=== PATIENT | male | born 1965 | race Caucasian/White ===

== ENCOUNTER 2017-02-03 00:12 | Emergency (ER) | payer OTHER ==
[~2017-02-03] VITALS: Ht 177.8 cm; Wt 112.0 kg
[~2017-02-03 00:12] MED LIST: DIAZEPAM10 MG PO; HYDRODIURIL 2525 MG PO; LOPRESSOR100 MG PO; MICARDIS40 MG PO; MOBIC15 M1 PO; MORPHINE SULFAT30 M2 PO; MULTIVITAMIN1 TAB PO; OXYCODONE HYDRO30 MG PO; PERCOCET 5-3251 EACH PO
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
--- NOTE | 2017-02-03 06:14 | RADIOLOGY REPORT ---
EXAMINATION: XR KNEE, LEFT XR KNEE, RIGHT CLINICAL INFORMATION: Chronic pain COMPARISON: 04/16/2011 TECHNIQUE: 4 views of each knee FINDINGS: Left knee: No fracture or subluxation. Mild medial compartment joint space narrowing. Prominent tricompartmental marginal osteophytes. No significant joint effusion. Right knee: No fracture or subluxation. Mild medial compartment joint space narrowing. Prominent tricompartmental marginal osteophytes. No joint effusion. IMPRESSION: No acute osseous abnormality. Moderate tricompartmental degenerative changes of both knees.
[2017-02-03] MEDS ORDERED: PERCOCET 5-3251 EACH PO (06:29)
[2017-02-03] MEDS ORDERED: IBUPROFEN800 M1 PO (06:31)
[2017-02-03 06:38] VITALS: BP 156/89
[2017-03-01] MEDS ORDERED: NAPROXEN SODIU220 MG PO (15:10)
[2017-03-01] MEDS ORDERED: LISINOPRIL20 M1 PO (15:10)
[2017-03-01] MEDS ORDERED: LEVOTHYROXINE25 MCG PO (15:10)
[2017-03-01] MEDS ORDERED: ATORVASTATIN CA20 M1 PO (15:11)
[2017-03-01] MEDS ORDERED: TRAZODONE HCL50 M1 PO (15:11)
== END 2017-02-03 06:39 ==
LOC: ERH 00:12
DX: G89.29 Other chronic pain (principal); M17.0 Bilateral primary osteoarthritis of knee
CPT/HCPCS: 73562-LT; 73562-RT

== ENCOUNTER 2017-02-10 19:46 | Emergency (ER) | payer OTHER ==
[~2017-02-10] VITALS: Ht 177.8 cm; Wt 112.0 kg
[~2017-02-10 19:46] MED LIST changes: +IBUPROFEN800 M1 PO
[2017-02-10] MEDS ORDERED: HYDROCHLOROTHIA25 M1 PO (20:19)
[2017-02-10] MEDS ORDERED: METOPROLOL TAR100 M1 PO (20:19)
--- NOTE | 2017-02-10 20:23 | ED HEADACHE COMPLAINT ---
History of Present Illness General Chief Complaint: General Adult Stated Complaint: MIGRAINE, PANIC ATTACK Source: patient, old records Exam Limitations: no limitations Vital Signs & Intake/Output Vital Signs & Intake/Output Vital Signs Date Time Temp Pulse Resp B/P B/P Pulse O2 O2 Flow FiO2 Mean Ox Delivery Rate 02/11 2056 180/120 02/10 2041 77 22 197/131 02/10 2009 99.3 77 22 197/131 94 Room Air Allergies Coded Allergies: NO KNOWN ALLERGIES (NKA 02/10/17) Reconcile Medications Hydrochlorothiazide 25 MG TABLET 1 TAB PO DAILY BP (Reported) Ibuprofen 800 MG TABLET 1 TAB PO TID PRN pain Metoprolol Tartrate 100 MG TABLET 1 TAB PO BID HEART/BP (Reported) Oxycodone HCl/Acetaminophen (Percocet 5-325 MG Tablet) 5 MG-325 MG TABLET 1 TAB PO BID PAIN Triage Note: TRIAGE: PT TO ER C/C MIGRAINE HEADACHE, ONSET LAST NIGHT. CONSTANT SINCE ONSET. TAKING MOTRIN "THAT'S IT, THAT'S ALL I GOT. THEY CUT ME OFF CHAMP I CAME UP SHORT". MOTRIN ISN'T HELPING THE PAIN. PT HYPERTENSIVE. STATES TAKES METOPROLOL 100 MG BID, WAS DUE TO TAKE EVENING DOSE AT 8 PM. AUTO B/P 197/131, MANUAL 178/118 AT TRIAGE. BAKERY SUPERVISOR SAMMY AWARE OF SAME. Triage Nurses Notes Reviewed? yes Onset: Gradual Duration: week(s): (1), constant, waxing and waning Timing: recent history Quality/Severity: moderate, severe, achy Severity Numbers: 6 Head Injury Location: global No Modifying Factors: none Associated Symptoms: denies HPI: 52-year-old male with history of migraines chronic pain for which she was previously and pain management however was kicked out presents complaining of a one-week history of a progressively worsening waxing and waning in intensity migraine headache. States he's been taking ibuprofen and Tylenol without improvement. He was seen here last week for knee pain and was prescribed Percocet however states he ran out on arrival he presents hypertensive denies any vision changes nausea vomiting. No recent fall or head trauma no chest pain shortness of breath abdominal pain. He states that he did not take his metoprolol this evening no Lasix 100 mg twice a day. No modifying factors or associated symptoms otherwise he is not followed by a neurologist regarding his headaches. (DEQUAN VASQUEZ) Past History Travel History Traveled to [place] past 21 day No Medical History Any Pertinent Medical History? 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 No (DEQUAN VASQUEZ) Review of Systems Review of Systems Constitutional: Reports: see HPI. All Other Systems: Reviewed and Negative Comments Review of systems: See HPI, All other systems negative. Constitutional, no chills no fever, no malaise HEENT: No visual changes no sore throat no congestion Cardiovascular: No chest pain , no palpitation Skin: no rashes, no change in skin Respiratory: No dyspnea no cough no sputum GI: No nausea no vomiting, no diarrhea, no bloating/constipation : No dysuria Muscle skeletal: No joint pain, no joint swelling, no back pain, no neck pain, Neurologic: No numbness no confusion, headache Psych: No stress Heme/endocrine: No bruising Immunology: No lymphadenopathy (DEQUAN VASQUEZ) Physical Exam Physical Exam General Appearance: well developed/nourished, alert Cranial Nerves: normal hearing, normal speech, PERRL Comments: Well-developed well-nourished person in no acute distress HEENT: Normal EENT exam; PERRL, EOMI, no nystagmus. HEAD is atraumatic. moist mucous membranes. Neck: Supple, normal range of motion Back: Nontender, no CVA tenderness. Full range of motion Cardiovascular: Regular rate and rhythms no murmurs rubs Respiratory: Chest nontender.There were no bony deformities, no asymmetry. No respiratory distress. Patient speaking in full complete sentences. Breath sounds clear to auscultation bilaterally: NO W/R/R Abdomen: Soft, nontender nondistended, no appreciable organomegaly. Normal bowel sounds. No rebound/guarding, Extremity: No edema, full range of motion of extremities Neuro: Alert oriented x3, motor sensory normal, cranial nerves are intact within normal limits There were no obvious focal neurologic abnormalities. Skin: No appreciable rash on exposed skin, skin is warm and dry. Psych: Mood and affect is normal, memory and judgment is normal. Core Measures Severe Sepsis Present: No Septic Shock Present: No (DEQUAN VASQUEZ) Progress Differential Diagnosis: IC mass/tumor, intracranial Hem., meningitis, migraine GUZMAN, tension GUZMAN, HTN, HYPERTENSIVE URGENCY/EMERGENCY, OPIATE WITHDRAWAL Plan of Care: Current Medications Sig/Will Start time Last Medication Dose Stop Time Status Admin Metoprolol Tartrate 100 MG ONCE ONE 02/10 2045 UNVr (Lopressor) 02/10 2046 Oxycodone/ 1 TAB ONCE ONE 02/10 2045 UNVr Acetaminophen 02/10 2046 (Percocet) For patient's chronic pain and likely opioid withdrawal he is given 2 Percocet and monitored. Discussed with him that it is likely having increased blood pressure from pain and also withdrawal from opiates. I discussed with patient regarding continued narcotic use and abuse and he needs follow-up with pain management as well as pmd and neurolgist dr luciano. He is in the works to have a follow-up with pain management. He understands that the ER cannot continue to prescribe him narcotic pain medication. He'll be given 10 pills as are policy states for chronic pain he is stable for discharge home. (DEQUAN VASQUEZ) Departure Departure Time of Disposition: 2035 Disposition: HOME OR SELF CARE Condition: Stable Clinical Impression Primary Impression: Migraine Referrals: MUSTAPHA STEWARD,JORGE HOLLINS APRN (PCP/Family) TANVI STEWARD,ZOHREH Lo Additional Instructions: FOLLOW UP WITH NEUROLOGIST DR LUCIANO WELL PAIN MANAGEMENT DR TANVI SESAY DIRECTED- THIS IS A NARCOTIC AND HIGHLY ADDICTIVE. NO DRIVING OR DRINKING ALCOHOL WHILE TAKING. THIS ER CANNOT AND WILLNOT CONTINUE TO PRSECRIBE YOU THESE MEDICATIONS. CONTINUE TO TAKE YOUR BLOOD PRESSURE MEDICATION PRESCRIBED AND CHECK YOUR BLOOD PRESSURE AT HOME WITH A HOME BP CUFF YOUR BLOOD PRESSURE HAS BEEN ELEVATED DURING YOUR RECENT ER VISITS YOUR PRESCRIPTION IS AT [facility] Departure Forms: Customer Survey General Discharge Information Prescriptions: Current Visit Scripts Oxycodone HCl/Acetaminophen (Percocet 5-325 MG Tablet) 1 TAB PO BID #10 TAB (DEQUAN VASQUEZ) PA/CADWORX PIPING DESIGNER Co-Sign Statement Statement: ED Attending supervision documentation- [] I saw and evaluated the patient. I have also reviewed all the pertinent lab results and diagnostic results. I agree with the findings and the plan of care as documented in the PA's/CADWORX PIPING DESIGNER's documentation. [x] I have reviewed the ED Record and agree with the PA's/CADWORX PIPING DESIGNER's documentation. [] Additions or exceptions (if any) to the PAs/CADWORX PIPING DESIGNER's note and plan are summarized below: [] (DERRELL STEWARD,JAD Solomon)
[2017-02-10] MEDS ORDERED: PERCOCET 5-3251 EACH PO (20:38)
[2017-02-10 20:56] VITALS: BP 180/120
[2017-03-01] MEDS ORDERED: LEVOTHYROXINE25 MCG PO (15:10)
[2017-03-01] MEDS ORDERED: LISINOPRIL20 M1 PO (15:10)
[2017-03-01] MEDS ORDERED: NAPROXEN SODIU220 MG PO (15:10)
[2017-03-01] MEDS ORDERED: ATORVASTATIN CA20 M1 PO (15:11)
[2017-03-01] MEDS ORDERED: TRAZODONE HCL50 M1 PO (15:11)
== END 2017-02-10 20:57 ==
LOC: ERH 19:46
DX: G43.909 Migraine, unspecified, not intractable, without status migrainosus (principal)

== ENCOUNTER 2017-11-04 10:00 | Observation (INO) | payer OTHER ==
[~2017-11-04] VITALS: Ht 177.8 cm; Wt 121.6 kg
[~2017-11-04 10:00] MED LIST changes: +ATORVASTATIN CA20 M1 PO; +HYDROCHLOROTHIA25 M1 PO; +LEVAQUIN500 M1 PO; +LEVOTHYROXINE25 MCG PO; +LISINOPRIL20 M1 PO; +METOPROLOL TAR100 M1 PO; +NAPROXEN SODIU220 MG PO; +PREDNISONE50 M1 PO; +TRAZODONE HCL50 M1 PO; +VENTOLIN HFA18 GM INH
[2017-11-04 11:13] LABS: ABSOLUTE BASOPHIL COUNT 0 /CUMM (0.0-0.2); ABSOLUTE EOSINOPHIL COUNT 0.2 /CUMM (0.0-0.7); ABSOLUTE GRANULOCYTE CT 7.2 /CUMM (1.4-6.5); ABSOLUTE LYMPH COUNT 2.6 /CUMM (1.2-3.4); ABSOLUTE MONOCYTE COUNT 0.9 /CUMM (0.10-0.60); BASOPHIL % 0.3 % (0.0-2.0); EOSINOPHIL % 1.6 % (0-5); GRANULOCYTE % 65.8 % (42.2-75.2); HEMATOCRIT 44.7 % (42-52); MEAN CORPUSCULAR HGB 28.7 PG (27.0-31.0); MEAN CORPUSCULAR HGB CONC 34.7 G/DL (33.0-37.0); MEAN CORPUSCULAR VOLUME 82.8 FL (80.0-94.0); MEAN PLATELET VOLUME 8.4 FL (7.4-10.4); PLATELET COUNT 191 /CUMM (130-400); RBC DISTRIBUTION WIDTH 13.8 % (11.5-14.5); RED BLOOD CELL CT 5.39 /CUMM (4.70-6.10); WHITE BLOOD CELL COUNT 10.9 /CUMM (4.8-10.8)
--- NOTE | 2017-11-04 11:14 | ED CARDIAC/CP/PALPITATIONS ---
History of Present Illness General Chief Complaint: Chest Pain Stated Complaint: CHEST PAIN,DIAPHORESIS Source: patient Exam Limitations: no limitations Vital Signs & Intake/Output Vital Signs & Intake/Output Vital Signs Date Time Temp Pulse Resp B/P B/P Pulse O2 O2 Flow FiO2 Mean Ox Delivery Rate 11/04 1351 74 20 117/76 96 Room Air 11/04 1321 97.0 66 20 114/64 97 Room Air 11/04 1224 97.9 72 20 109/58 95 Room Air 11/04 1217 Room Air Room Air 11/04 1214 97.9 70 20 142/77 95 Room Air 11/04 1032 98.1 82 20 109/76 94 Room Air Allergies Coded Allergies: No Known Allergies (11/04/17) Reconcile Medications Albuterol Sulfate (Ventolin Hfa) 90 MCG HFA.AER.AD 2 PUF INH Q4-6 PRN PRN wheezing Hydrochlorothiazide 25 MG TABLET 1 TAB PO DAILY BP (Reported) Lisinopril 20 MG TABLET 1 TAB PO DAILY HTN (Reported) Metoprolol Tartrate 100 MG TABLET 1 TAB PO BID HEART/BP (Reported) Oxycodone HCl 30 MG TABLET 1 TAB PO TIDPRN PRN PAIN (Reported) Triage Note: PT STATES HE HAD MID CHEST PAIN AND STATES "I THOUGHT I WAS DYING" +SOB. 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 + DIAPHORESIS. PAIN LASTED ABOUT 20 MINUTES. Triage Nurses Notes Reviewed? yes Onset: Abrupt Duration: better Timing: single episode today Quality/Severity: severe, pressure Radiation: no radiation Activities at Onset: activity HPI: Patient is a 52-year-old male with a past medical history nicotine dependence, HTN, HLD, migraines and COPD AND CHRONIC PAIN ON OPIATES who presents emergency with concerns of chest pain. Patient per old records was evaluated at [facility] emergency room on October 17 for similar complaints of chest pain and on October 22 for concerns of cough and shortness of breath. Patient was safely discharged all times Patient states that in between his first visit second visit he had a re- exacerbation of chest pain while at rest however today he was in his normal state health patient was walking uphill and had exertional severe chest pressure diaphoresis lightheaded sensation or patient states that the chest pain was so bad "I THOUGHT I WAS GOING TO ". Patient states that on evaluation currently his symptoms have improved however still present. Patient was describing crushing chest pain with out radiation denies any arm pain jaw pain leg swelling hemoptysis Patient did not take any medications for symptoms Patient is an every day smoker Denies any history of cardiac OUTPATIENT F/U (Nathaniel Mccauley) Past History Travel History Traveled to [place] past 21 day No Medical History Any Pertinent Medical History? 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 No (Nathaniel Mccauley) Review of Systems Review of Systems Constitutional: Reports: no symptoms. EENTM: Reports: no symptoms. Respiratory: Reports: see HPI, short of breath. Cardiovascular: Reports: see HPI, chest pain. GI: Reports: no symptoms. Genitourinary: Reports: no symptoms. Musculoskeletal: Reports: no symptoms. Skin: Reports: no symptoms. Neurological/Psychological: Reports: no symptoms. Hematologic/Endocrine: Reports: no symptoms. Immunologic/Allergic: Reports: no symptoms. All Other Systems: Reviewed and Negative (Nathaniel Mccauley) Physical Exam Physical Exam General Appearance: no apparent distress, alert, obese Head: atraumatic Eyes: Bilateral: normal appearance, PERRL. Ears, Nose, Throat: normal pharynx, normal ENT inspection Neck: normal inspection, supple Respiratory: normal breath sounds, chest non-tender, no respiratory distress Cardiovascular: regular rate/rhythm Gastrointestinal: normal bowel sounds, soft, non-tender Extremities: normal inspection, normal capillary refill, normal range of motion Neurologic/Psych: no motor/sensory deficits, awake, alert Skin: intact, normal color, warm/dry Core Measures ACS in differential dx? Yes CVA/TIA Diagnosis No Sepsis Present: No Sepsis Focused Exam Completed? No (Nathaniel Mccauley) Progress Differential Diagnosis: AMI, aortic dissection, atrial fibrillation, cholecystitis, CHF/pulm edema, costochondritis, hyperkalemia, hypovolemia, hyperthyroid, hyperventilation, intracranial hemorrhage, musculoskeletal pain, myocarditis, pancreatitis, pericarditis, pneumonia, pneumothorax, PSVT, pulmonary embolism, PUD/GERD, PVCs/PACs, respiratory failure, sepsis, unstable angina, V-fib/V-Tach, WPW syndrome Plan of Care: Orders Procedure Date/time Status Regular Diet 11/04 D Active OXYGEN SETUP (GEN) 11/04 1441 Active Saline Lock 11/[address] in observation 11/04 1441 Active Patient Data 11/04 1441 Active Vital Signs 11/04 1441 Active Activity/Ambulation 11/04 1441 Active Code Status 11/04 1441 Active Intake & Output 11/04 1216 Active Add-on Test (ER Only) 11/04 1201 Active Telemetry/Senior Corporate Accountant 11/04 1201 Active D-DIMER 11/04 1126 Complete Add-on Test (ER Only) 11/04 1113 Active THYROID STIMULATING HORMONE 11/04 1040 Complete THYROXINE 11/04 1040 Complete MAGNESIUM 11/04 1040 Complete TROPONIN LEVEL 11/04 1034 Complete COMPREHENSIVE METABOLIC PANEL 11/04 1034 Complete CBC WITHOUT DIFFERENTIAL 11/04 1034 Complete EKG 11/04 1004 Active Laboratory Tests 11/04/17 1149: D-Dimer High Sensitivty < 200 11/04/17 1040: Anion Gap 14, Estimated GFR > 60, BUN/Creatinine Ratio 18.2, Glucose 273 H, Calcium 9.7, Magnesium 1.6, Total Bilirubin 0.7, AST 17, ALT 32, Alkaline Phosphatase 65, Troponin I < 0.01, Total Protein 6.4, Albumin 3.9, Globulin 2.5, Albumin/Globulin Ratio 1.6, TSH 6.510 H, Thyroxine (T4) 6.7, CBC w Diff NO MAN DIFF REQ, RBC 5.39, MCV 82.8, MCH 28.7, MCHC 34.7, RDW 13.8, MPV 8.4, Gran % 65.8, Lymphocytes % 23.9, Monocytes % 8.4, Eosinophils % 1.6, Basophils % 0.3, Absolute Granulocytes 7.2 H, Absolute Lymphocytes 2.6, Absolute Monocytes 0.9 H, Absolute Eosinophils 0.2, Absolute Basophils 0 Patient on initial presentation was in mild distress nitroglycerin was administered patient states that his symptoms MILDLY IMPROVED FROM 6/10 TO 5/10 and he had headache complaints, initial EKG and troponin were unremarkable patient was given potassium tablets for hypokalemia no EKG abnormalities d-dimer was negative no concerns of PE however due to history of present illness patient 's comorbidities there is significant concern of angina and observation to evaluate rule out ACS would be warranted CARDIOLOGY WAS PAGED 0817 CARDIOLOLGY WAS PAED 0715 Diagnostic Imaging: Viewed by Me: Radiology Read. CXR Impression: no acute abnormality, no infiltrates Initial ED EK BPM,NSR Prior EKG: unchanged Comments: PATIENT: EVELINA SALAS PRESENT AGE: 52 PATIENT ACCOUNT NO: [id number] : 64 LOCATION: [facility] ([place] ORDERING PHYSICIAN: Nathaniel RODRIGUEZ SERVICE DATE: 11/04/17 EXAM TYPE: RAD - XRY-CHEST XRAY, TWO VIEWS EXAMINATION: XR CHEST CLINICAL INFORMATION: Chest pain. COMPARISON: 10/22/2017 TECHNIQUE: 2 views of the chest were obtained. FINDINGS: Cardiac and mediastinal silhouette is within normal limits. Lungs are symmetric expanded. There are no pleural effusions, edema or pneumothorax. No focal consolidation. No acute osseous abnormality. IMPRESSION: No significant interval change. No acute process. DICTATED BY: Jc Arnold MD DATE/TIME DICTATED:11/04/171413 FLOODPLAIN MANAGER:ANAM DATE/TIME TRANSCRIBED:11/04/171413 CONFIDENTIAL, DO NOT COPY WITHOUT A (Nathaniel Mccauley) Departure Departure Disposition: STILL A PATIENT Condition: Stable Clinical Impression Primary Impression: Exertional angina Referrals: Shay Mcnally MD (PCP/Family) Departure Forms: Customer Survey General Discharge Information Observation Note Spoke With: Anju Lafleur MD Physician Advisor Notified: MARIOLA STEWARD,MECHE [facility] [address] Patient In: Non-ED OBS Care Area Rationale for Observation: My rational for observation is as follows [patient requires telemetry observation for concerns of ongoing chest pain, patient requires telemetry monitoring repeat EKG repeat cardiac enzymes and cardiology consultation]. (Nathaniel Mccauley) PA/GAS PRODUCER Co-Sign Statement Statement: ED Attending supervision documentation- x I saw and evaluated the patient. I have also reviewed all the pertinent lab results and diagnostic results. I agree with the findings and the plan of care as documented in the PA's/GAS PRODUCER's documentation. Exertional chest pain, CHAKRABORTY [] I have reviewed the ED Record and agree with the PA's/GAS PRODUCER's documentation. [] Additions or exceptions (if any) to the PAs/GAS PRODUCER's note and plan are summarized below: [] (Germania STEWARD,Marcello) Critical Care Note Critical Care Note Critical Care Time: 30-74 min (Nathaniel Mccauley)
[2017-11-04] MEDS ORDERED: OXYCODONE HCL30 M1 PO (11:38)
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
--- NOTE | 2017-11-04 14:50 | RADIOLOGY REPORT ---
EXAMINATION: XR CHEST CLINICAL INFORMATION: Chest pain. COMPARISON: 10/22/2017 TECHNIQUE: 2 views of the chest were obtained. FINDINGS: Cardiac and mediastinal silhouette is within normal limits. Lungs are symmetric expanded. There are no pleural effusions, edema or pneumothorax. No focal consolidation. No acute osseous abnormality. IMPRESSION: No significant interval change. No acute process.
[2017-11-04 17:09] VITALS: BP 142/80
[2017-11-04 22:23] VITALS: BP 126/80
[2017-11-05 06:05] VITALS: BP 114/76
--- NOTE | 2017-11-05 07:41 | PN- Housestaff ---
Subjective Follow-up For: Substernal chest pain Hypokalemia/hypomagnesemia Hyperglycemia Chronic back pain Tele-Events Since Last Visit: NS HR 63-73 Subjective: Patient reports CP 10. He denies diaphoresis, palpitations, lightheadedness, nausea, vomiting Review of Systems Constitutional: Reports: see HPI. Objective Last 24 Hrs of Vital Signs/I&O Vital Signs Date Time Temp Pulse Resp B/P B/P Pulse O2 O2 Flow FiO2 Mean Ox Delivery Rate 11/05 0822 74 114/76 11/05 0822 74 114/76 11/05 0800 93 Room Air Room Air 11/05 0605 97.8 74 20 114/76 93 Room Air 11/04 2223 97.3 84 20 126/80 94 Room Air 11/04 2200 Room Air 11/04 2032 84 126/80 11/04 1709 97.8 71 20 142/80 95 Room Air 11/04 1704 Room Air 11/04 1628 98.3 65 14 114/74 95 Room Air Intake & Output 11/05 1600 11/05 0800 11/05 0000 Intake Total 600 0 480 Output Total Balance 600 0 480 Intake, Oral 600 0 480 Patient 268 lb Weight Physical Exam General Appearance: Alert, Oriented X3, Cooperative, No Acute Distress Cardiovascular: Regular Rate, Normal S1, Normal S2 Lungs: Clear to Auscultation, Normal Air Movement Abdomen: Normal Bowel Sounds, Soft, No Tenderness Extremities: No Edema Current Medications: Current Medications Sig/Will Start time Last Medication Dose Route Stop Time Status Admin Acetaminophen 650 MG ONCE ONE 11/04 1230 DC 11/04 PO 11/04 1231 1226 Acetaminophen 0 .STK-MED ONE 11/04 1227 DC PO Albuterol Sulfate 2 PUF Q4-6 PRN PRN 11/04 1630 AC INH Aspirin 81 MG DAILY 11/05 1000 AC 11/05 PO 0821 Aspirin 0 .STK-MED ONE 11/04 1216 DC PO Aspirin 325 MG ONCE ONE 11/04 1215 DC 11/04 PO 11/04 1216 1214 Hydrochlorothiazide 25 MG DAILY 11/05 1000 AC 11/05 PO 0821 Lisinopril 20 MG DAILY 11/05 1000 AC 11/05 PO 0822 Metoprolol Tartrate 100 MG BID 11/04 2200 AC 11/05 PO 0822 Morphine Sulfate 4 MG ONCE ONE 11/04 1345 DC 11/04 IV 11/04 1346 1352 Morphine Sulfate 0 .STK-MED ONE 11/04 1341 DC .ROUTE Nicotine 21 MG DAILY 11/04 2030 AC 11/04 TOP 2104 Nitroglycerin 0.4 MG ONCE ONE 11/04 1345 DC 11/04 SL 11/04 1346 1340 Nitroglycerin 0 .STK-MED ONE 11/04 1217 DC SL Nitroglycerin 0.4 MG ONCE ONE 11/04 1215 DC 11/04 SL 11/04 1216 1214 Oxycodone HCl 30 MG TIDPRN PRN 11/04 1630 AC 11/05 PO 0820 Potassium Chloride 40 MEQ ONCE ONE 11/04 1200 DC 11/04 PO 11/04 1201 1158 Potassium Chloride 0 .STK-MED ONE 11/04 1200 DC PO Last 24 Hrs of Lab/Kyle Results Last 24 Hrs of Labs/Mics: Laboratory Tests 11/04/17 2207: Troponin I 0.02 11/04/17 1610: Troponin I 0.02 11/04/17 1610: Anion Gap 10, Estimated GFR > 60, BUN/Creatinine Ratio 22.2 11/04/17 1149: D-Dimer High Sensitivty < 200 11/04/17 1040: Anion Gap 14, Estimated GFR > 60, BUN/Creatinine Ratio 18.2, Glucose 273 H, Hemoglobin A1c Pending, Calcium 9.7, Magnesium 1.6, Total Bilirubin 0.7, AST 17, ALT 32, Alkaline Phosphatase 65, Troponin I < 0.01, Total Protein 6.4, Albumin 3.9, Globulin 2.5, Albumin/Globulin Ratio 1.6, TSH 6.510 H, Thyroxine (T4) 6.7, CBC w Diff NO MAN DIFF REQ, RBC 5.39, MCV 82.8, MCH 28.7, MCHC 34.7, RDW 13.8, MPV 8.4, Gran % 65.8, Lymphocytes % 23.9, Monocytes % 8.4, Eosinophils % 1.6, Basophils % 0.3, Absolute Granulocytes 7.2 H, Absolute Lymphocytes 2.6, Absolute Monocytes 0.9 H, Absolute Eosinophils 0.2, Absolute Basophils 0 Assessment/Plan Assessment: Mr. Khan is a 52 yo male, current smoker (1PPD x > 20 yrs) with a PMH of migraines, HTN, hyperlipidemia, gallstones, disk herniation presents to ED with substernal chest pain Substernal chest pain His chest pain seems non-cardiac related but has cardiac risk factors. * continue 24-hour observation * Serial troponins and ECG to rule out ACS negative * Cardiology recommendations appreciated * Exercise stress test negative Hypokalemia/hypomagnesemia * Monitor and replete as needed Hyperglycemia * Hemoglobin A1c 8.8 * Accu-Cheks and NovoLog SS * Start Metformin 500 mg BID Chronic back pain * Continue oxycodone Diet: Diabetic DVT prophylaxis: ALPS Code: FULL Problem List: 1. Diabetes mellitus type 2 in obese 2. Chest pain 3. Hypokalemia 4. Hypomagnesemia Pain Ratin Pain Location: Substernal Pain Goal: Pain 4 or less Pain Plan: Oxycodone Tomorrow's Labs & Rationales: None
[2017-11-05 08:22] VITALS: BP 114/76
--- NOTE | 2017-11-05 11:01 | Cons- Cardiology ---
General Information and HPI Consulting Request Date of Consult: 11/05/17 Requested By: Jose Raul Cody MD Reason for Consult: Chest pain Source of Information: patient Exam Limitations: no limitations History of Present Illness: The patient is a 52-year-old male with history of hypertension, smoking, hyperlipidemia, chronic back pain and knee pain, who presented to the emergency room with chest discomfort. Patient states that he was on his way to her job interview and while driving developed severe chest pain rated 10 out of 10 with nausea and diaphoresis. He states that he felt like he was "going to ". Due to the severity of the symptoms he presented to the emergency room for evaluation. He states that he did have a similar symptoms a few weeks ago while at a friend' s house but the symptoms resolved spontaneously and he did not seek medical attention at that time. He states that he has been here to the emergency room multiple times with chest discomfort although his history is somewhat questionable given the fact there is no documentation found in [facility]. He does state that he has chronic back pain and is on pain medications but they have not been renewed. Allergies/Medications Allergies: Coded Allergies: No Known Allergies (11/04/17) Home Med List: Albuterol Sulfate (Ventolin Hfa) 90 MCG HFA.AER.AD 2 PUF INH Q4-6 PRN PRN wheezing Hydrochlorothiazide 25 MG TABLET 1 TAB PO DAILY BP (Reported) Lisinopril 20 MG TABLET 1 TAB PO DAILY HTN (Reported) Metoprolol Tartrate 100 MG TABLET 1 TAB PO BID HEART/BP (Reported) Oxycodone HCl 30 MG TABLET 1 TAB PO TIDPRN PRN PAIN (Reported) Current Medications: Current Medications Sig/Will Start time Last Medication Dose Route Stop Time Status Admin Acetaminophen 650 MG ONCE ONE 11/04 1230 DC 11/04 PO 11/04 1231 1226 Acetaminophen 0 .STK-MED ONE 11/04 1227 DC PO Albuterol Sulfate 2 PUF Q4-6 PRN PRN 11/04 1630 AC INH Aspirin 81 MG DAILY 11/05 1000 AC 11/05 PO 0821 Aspirin 0 .STK-MED ONE 11/04 1216 DC PO Aspirin 325 MG ONCE ONE 11/04 1215 DC 11/04 PO 11/04 1216 1214 Hydrochlorothiazide 25 MG DAILY 11/05 1000 AC 11/05 PO 0821 Lisinopril 20 MG DAILY 11/05 1000 AC 11/05 PO 0822 Metoprolol Tartrate 100 MG BID 11/04 2200 AC 11/05 PO 0822 Morphine Sulfate 4 MG ONCE ONE 11/04 1345 DC 11/04 IV 11/04 1346 1352 Morphine Sulfate 0 .STK-MED ONE 11/04 1341 DC .ROUTE Nicotine 21 MG DAILY 11/04 2030 AC 11/04 TOP 2104 Nitroglycerin 0.4 MG ONCE ONE 11/04 1345 DC 11/04 SL 11/04 1346 1340 Nitroglycerin 0 .STK-MED ONE 11/04 1217 DC SL Nitroglycerin 0.4 MG ONCE ONE 11/04 1215 DC 11/04 SL 11/04 1216 1214 Oxycodone HCl 30 MG TIDPRN PRN 11/04 1630 AC 11/05 PO 0820 Potassium Chloride 40 MEQ ONCE ONE 11/04 1200 DC 11/04 PO 11/04 1201 1158 Potassium Chloride 0 .STK-MED ONE 11/04 1200 DC PO Review of Systems Review of Systems: Eyes no blurred or double vision Ears no deafness or ringing Nose and throat no recurrent sinusitis Lungs per history of present illness Heart per history of present illness Abdomen no nausea vomiting Musculoskeletal chronic back pain and knee pain. 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 Surgical History Surgical History: non-contributory Psychosocial History Smoking Status: Current Everyday Smoker ETOH Use: denies use Illicit Drug Use: denies illicit drug use Exam & Diagnostic Data Vital Signs and I&O Vital Signs Date Time Temp Pulse Resp B/P B/P Pulse O2 O2 Flow FiO2 Mean Ox Delivery Rate 11/05 0822 74 114/76 11/05 0822 74 114/76 11/05 0605 97.8 74 20 114/76 93 Room Air 11/04 2223 97.3 84 20 126/80 94 Room Air 11/04 2200 Room Air 11/04 2032 84 126/80 02/26 1709 97.8 71 20 142/80 95 Room Air 11/04 1704 Room Air 11/04 1628 98.3 65 14 114/74 95 Room Air 11/04 1351 74 20 117/76 96 Room Air 11/04 1321 97.0 66 20 114/64 97 Room Air 11/04 1224 97.9 72 20 109/58 95 Room Air 11/04 1217 Room Air Room Air 11/04 1214 97.9 70 20 142/77 95 Room Air Intake & Output 11/05 1600 11/05 0800 11/05 0000 11/04 0811/04 0000 Intake Total 0 480 60 Output Total Balance 0 480 60 Intake, Oral 0 480 60 Patient 268 lb 268 lb Weight Weight Reported by Patient Measurement Method Physical Exam: Patient is a well-developed well-nourished male appearing anxious but in no acute distress HEENT is unremarkable Neck is supple there is no JVD Lungs are clear Heart regular rhythm S1 and S2 are normal no murmurs gallops or rubs Abdomen bowel sounds positive Extremities without edema Labs/Kyle Results: Laboratory Tests 11/05 11/04 11/04 11/04 11/04 0830 2207 1610 1610 1149 Chemistry Sodium (137 - 145 mmol/L) 135 L Potassium (3.5 - 5.1 mmol/L) 3.6 Chloride (98 - 107 mmol/L) 95 L Carbon Dioxide (22 - 30 mmol/L) 29 Anion Gap (5 - 16) 10 BUN (9 - 20 mg/dL) 20 Creatinine (0.7 - 1.2 mg/dL) 0.9 Estimated GFR (>60 ml/min) > 60 BUN/Creatinine Ratio (7 - 25 %) 22.2 Troponin I (<0.11 ng/ml) 0.02 0.02 Coagulation D-Dimer High Sensitivty (0 - 243 ng/ml) < 200 Toxicology Urine Opiates Screen (>2000 NG/ML) > 4000.00 H Methadone Screen (>300 NG/ML) < 40 Barbiturate Screen (>200 NG/ML) < 60 Ur Phencyclidine Scrn (>25 NG/ML) < 6.00 Amphetamines Screen (>1000 NG/ML) 111 U Benzodiazepines Scrn (>200 NG/ML) > 800.0 H Urine Cocaine Screen (>300 NG/ML) 141 Urine Cannabis Screen (>50 NG/ML) < 5.00 11/04 11/04 1040 0830 Chemistry Sodium (137 - 145 mmol/L) 133 L Potassium (3.5 - 5.1 mmol/L) 3.1 L Chloride (98 - 107 mmol/L) 92 L Carbon Dioxide (22 - 30 mmol/L) 27 Anion Gap (5 - 16) 14 BUN (9 - 20 mg/dL) 20 Creatinine (0.7 - 1.2 mg/dL) 1.1 Estimated GFR (>60 ml/min) > 60 BUN/Creatinine Ratio (7 - 25 %) 18.2 Glucose (65 - 99 mg/dL) 273 H Hemoglobin A1c (4.2 - 5.8 %) Pending Calcium (8.4 - 10.2 mg/dL) 9.7 Magnesium (1.6 - 2.3 mg/dL) 1.6 Total Bilirubin (0.2 - 1.3 mg/dL) 0.7 AST (17 - 59 U/L) 17 ALT (21 - 72 U/L) 32 Alkaline Phosphatase (< 127 U/L) 65 Troponin I (<0.11 ng/ml) < 0.01 Total Protein (6.3 - 8.2 g/dL) 6.4 Albumin (3.5 - 5.0 g/dL) 3.9 Globulin (1.9 - 4.2 gm/dL) 2.5 Albumin/Globulin Ratio (1.1 - 2.2 %) 1.6 TSH (0.270 - 4.200 uIU/mL) 6.510 H Thyroxine (T4) (4.5 - 10.9 ug/dL) 6.7 Hematology CBC w Diff NO MAN DIFF REQ WBC (4.8 - 10.8 /CUMM) 10.9 H RBC (4.70 - 6.10 /CUMM) 5.39 Hgb (14.0 - 18.0 G/DL) 15.5 Hct (42 - 52 %) 44.7 MCV (80.0 - 94.0 FL) 82.8 MCH (27.0 - 31.0 PG) 28.7 MCHC (33.0 - 37.0 G/DL) 34.7 RDW (11.5 - 14.5 %) 13.8 Plt Count (130 - 400 /CUMM) 191 MPV (7.4 - 10.4 FL) 8.4 Gran % (42.2 - 75.2 %) 65.8 Lymphocytes % (20.5 - 51.1 %) 23.9 Monocytes % (1.7 - 9.3 %) 8.4 Eosinophils % (0 - 5 %) 1.6 Basophils % (0.0 - 2.0 %) 0.3 Absolute Granulocytes (1.4 - 6.5 /CUMM) 7.2 H Absolute Lymphocytes (1.2 - 3.4 /CUMM) 2.6 Absolute Monocytes (0.10 - 0.60 /CUMM) 0.9 H Absolute Eosinophils (0.0 - 0.7 /CUMM) 0.2 Absolute Basophils (0.0 - 0.2 /CUMM) 0 Toxicology Methadone Screen Cancelled Barbiturate Screen Cancelled Ur Phencyclidine Scrn Cancelled Amphetamines Screen Cancelled U Benzodiazepines Scrn Cancelled Urine Cocaine Screen Cancelled Urine Cannabis Screen Cancelled Diagnostic Data EKG Results Sinus rhythm nonspecific T-wave changes CXR Results IMPRESSION: No significant interval change. No acute process. Assessment/Plan Assessment/Plan 1. Chest pain of uncertain etiology. Certainly coronary artery disease is consideration given his presentation there are no acute EKG changes and troponins are negative. 2. Chronic back and knee pain, and 3. Hypertension 4. Smoking history neck/5. Hyperlipidemia Recommendations 1. Given his chest pain and multiple risk factors will plan for a regular stress test although given his back pain and the fact that he was given his beta blockers morning I'm not sure we will be able to obtain target heart rate. 2. If his stress test demonstrates no definite ischemia even if he does not attain target heart rate will plan for discharge if he remains stable with a nuclear stress test as an outpatient. 3. Continue his current antihypertensive regimen 4. Stressed smoking cessation Thank you for allowing [facility] to participate in the care of your patient. Consult Acknowledgment - Thank you for your consult request.
--- NOTE | 2017-11-05 12:23 | Patient Discharge Instructions ---
Discharge Instructions General Discharge Information You were seen/treated for: You were evaluated here for chest pain Special Instructions: Please follow up with your PCP with in a week of discharge. Please follow-up with your early childhood education coordinator within a week of discharge You need to take an appointment for nuclear stress test as an outpatient You are diagnosed as having type 2 diabetes on your blood work up. we advised you to see your PCP within a week of discharge and discuss about your diabetes we also advise you to check your blood sugar 2 times in a day and make a log. We started you on Tab metformin, which can cause diarrhea. If you started getting diarrhea, please discusse it with your PCP. Please avoid smoking. Diet Recommended Diet: Heart Healthy Acute Coronary Syndrome Inclusion Criteria At DC or during hospital stay patient has or had the following: ACS DIAGNOSIS No Discharge Core Measures Meds if any: Prescribed or Continued at Discharge Meds if any: NOT Prescribed or Continued at Discharge Congestive Heart Failure Inclusion Criteria At DC or during hospital stay patient has or had the following: CHF DIAGNOSIS No Discharge Core Measures Meds if any: Prescribed or Continued at Discharge Meds if any: NOT Prescribed or Continued at Discharge Cerebrovascular accident Inclusion Criteria At DC or during hospital stay patient has or had the following: CVA/TIA Diagnosis No Discharge Core Measures Meds if any: Prescribed or Continued at Discharge Meds if any: NOT Prescribed or Continued at Discharge Venous thromboembolism Inclusion Criteria VTE Diagnosis No VTE Type NONE VTE Confirmed by (Test) NONE Discharge Core Measures - Per Current guidelines, there needs to be overlap - treatment for the first 5 days of Warfarin therapy. - If discharged on Warfarin prior to 5 days of - overlap therapy, the patient will need to be - assessed for post discharge needs including - *Post discharge parental anticoagulation - *Warfarin and/or parental anticoagulation education - *Follow up date to check INR post discharge At least 5 days overlap therapy as Inpatient No Meds if any: Prescribed or Continued at Discharge Warfarin No Note: Overlap Therapy is Warfarin and Anticoagulant Meds if any: NOT Prescribed or Continued at Discharge
[2017-11-05] MEDS ORDERED: ASPIRIN81 M4 PO ×2 (13:14→13:48)
[2017-11-05] MEDS ORDERED: METFORMIN HCL500 M3 PO (13:47)
== END 2017-11-05 14:35 ==
LOC: ERH 10:00 → ERHI 14:41 → ENRESERV 15:22 → ENTRNSPT 16:31 → EDTRNSPTSTS 16:41 → EDTRNSPT 16:41 → 1NO 16:48 → CMPTRNSPT 16:55 → 1NO 11-05 14:35
PROVIDERS: Emergency Medicine
DX: R07.9 Chest pain, unspecified (principal); F17.200 Nicotine dependence, unspecified, uncomplicated; G43.909 Migraine, unspecified, not intractable, without status migrainosus; E11.8 Type 2 diabetes mellitus with unspecified complications; Z79.84 Long term (current) use of oral hypoglycemic drugs; I10 Essential (primary) hypertension; E78.5 Hyperlipidemia, unspecified; E66.9 Obesity, unspecified; E87.6 Hypokalemia; Z79.82 Long term (current) use of aspirin; E83.42 Hypomagnesemia; M54.9 Dorsalgia, unspecified; G47.00 Insomnia, unspecified; M25.569 Pain in unspecified knee; Z79.899 Other long term (current) drug therapy; J37.0 Chronic laryngitis
CPT/HCPCS: 6020; 36415; 71046; 80307; 82436; 93005; 93010; 93016; 93017; 96374; G0378; J3490

== ENCOUNTER 2018-04-09 04:12 | Emergency (ER) | payer OTHER ==
[~2018-04-09] VITALS: Ht 180.3 cm; Wt 117.9 kg
[~2018-04-09 04:12] MED LIST changes: +ASPIRIN81 M4 PO; +CLOTRIMAZOLE10 M1 PO; +ELIQUIS5 M3 PO; +METFORMIN HCL500 M3 PO; +OXYCODONE HCL30 M1 PO
--- NOTE | 2018-04-09 05:13 | ED HEADACHE COMPLAINT ---
History of Present Illness General Chief Complaint: General Adult Stated Complaint: "MY LEGS ARE BLOWING UP ON ME AND GUZMAN X'S 3WKS" Source: patient, old records Exam Limitations: no limitations Vital Signs & Intake/Output Vital Signs & Intake/Output Vital Signs Date Time Temp Pulse Resp B/P B/P Pulse O2 O2 Flow FiO2 Mean Ox Delivery Rate 04/09 0719 97.3 59 17 138/73 95 04/09 0506 92 04/09 0422 99.1 82 20 153/83 91 Room Air Room Air Allergies Coded Allergies: No Known Allergies (03/17/18) Reconcile Medications Albuterol Sulfate (Ventolin Hfa) 90 MCG HFA.AER.AD 2 PUF INH Q4-6 PRN PRN wheezing Apixaban (Eliquis) 5 MG (74 TABS) TAB.DS.PK 0 PO SEE ADMIN CRITERIA DVT 2 tabs 2 times a day for 1 week then 1 tab 2 times a day for 3 months Aspirin (Aspirin*) 81 MG TAB.CHEW 81 MG PO DAILY chest pain . Clotrimazole 10 MG TRINI 1 TAB PO 5 TIMES A DAY oral thrush Hydrochlorothiazide 25 MG TABLET 1 TAB PO DAILY BP (Reported) Lisinopril 20 MG TABLET 1 TAB PO DAILY HTN (Reported) Metoprolol Tartrate 100 MG TABLET 1 TAB PO BID HEART/BP (Reported) Oxycodone HCl 30 MG TABLET 1 TAB PO TIDPRN PRN PAIN (Reported) Oxycodone HCl/Acetaminophen (Percocet 5-325 MG Tablet) 5 MG-325 MG TABLET 1-2 TAB PO Q6H PRN pain Triage Note: 53YO MALE TO TRIAGE W/CO "MY LEGS ARE BLOWING UP, MY R CALF IS ROCK HARD, AND I HAVE A HEADACHE" Triage Nurses Notes Reviewed? yes HPI: Patient presents to the emergency department with 2 separate complaints. This first complaint is bilateral leg swelling. Patient was recently diagnosed with a DVT and is on a look was. Patient states the swelling began to get better but then he drove to [place] and came back and now the swelling is back. He denies any chest pain or shortness of breath. He continues to take his own request. His other complaint is a headache that he's had for the past 2 days. He describes a frontal throbbing headache. There is no photophobia. There is no blurry vision. There is no nausea or vomiting. No fevers or chills. Patient states he does not usually suffer from headaches and daily headache that he has had in the past was after concussion. Headache at 8 out of 10. There are no aggravating or mitigating factors. Past History Travel History Traveled to [place] past 21 day No Medical History Any Pertinent Medical History? 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 No Review of Systems Review of Systems Constitutional: Reports: no symptoms. Eyes: Reports: no symptoms. Ears, Nose, Throat, Mouth: Reports: no symptoms. Respiratory: Reports: no symptoms. Cardiovascular: Reports: no symptoms. Gastrointestinal/Abdominal: Reports: no symptoms. Genitourinary: Reports: no symptoms. Musculoskeletal: Reports: see HPI. Skin: Reports: no symptoms. Neurological/Psychological: Reports: see HPI, headache. Hematologic/Endocrine: Reports: no symptoms. Endocrine: Reports: no symptoms. Immunologic/Allergic: Reports: no symptoms. All Other Systems: Reviewed and Negative Physical Exam Physical Exam General Appearance: well developed/nourished, alert, awake, anxious, mild distress Head: atraumatic Eyes: Bilateral: PERRL, EOMI. Ears, Nose, Throat: normal pharynx, normal ENT inspection, hearing grossly normal Neck: normal inspection, supple, full range of motion Respiratory: normal breath sounds, chest non-tender, no respiratory distress, lungs clear Cardiovascular: regular rate/rhythm, normal peripheral pulses Gastrointestinal: normal bowel sounds, soft, non-tender, no organomegaly Back: normal inspection, normal range of motion Extremities: normal inspection, normal capillary refill, normal range of motion, pedal edema Psychiatric: awake, alert, oriented x 3 Cranial Nerves: normal hearing, normal speech, PERRL Coordination/Gait: normal gait Motor/Sensory: no motor/sensory deficits Skin: intact, normal color, warm/dry Core Measures Sepsis Present: No Sepsis Focused Exam Completed? No Progress Differential Diagnosis: intracranial Hem., tension GUZMAN Plan of Care: Orders Procedure Date/time Status CT HEAD WO IV CONTRAST 04/09 512 Active Current Medications Sig/Will Start time Last Medication Dose Stop Time Status Admin Diphenhydramine HCl 50 MG ONCE ONE 04/09 515 UNVr (Benadryl) 04/09 516 Ketorolac 30 MG ONCE ONE 04/09 515 UNVr Tromethamine 04/09 516 (Toradol) Diagnostic Imaging: Viewed by Me: CT Scan. Discussed w/RAD: CT Scan. Radiology Impression: PATIENT: EVELINA SALAS PRESENT AGE: 53 PATIENT ACCOUNT NO: [id number] : 64 LOCATION: [facility] ORDERING PHYSICIAN: Alex Sullivan MD SERVICE DATE: 04/09/18 EXAM TYPE: CAT - CT HEAD WO IV CONTRAST EXAMINATION: CT HEAD WITHOUT CONTRAST CLINICAL INFORMATION: Headache and on Eliquis. Presumptive diagnosis of intracranial hemorrhage. COMPARISON: CT scan of the head dated 04/22/2012. TECHNIQUE: Contiguous axial imaging was performed from the skull base to vertex without intravenous administration of contrast. DLP: 631.72 mGy-cm FINDINGS: Evaluation mildly limited by motion artifact. There is no evidence of acute intracranial hemorrhage or territorial infarction. No abnormal mass effect or midline shift is seen. Reyes to white matter differentiation is well preserved. No extra-axial fluid collections are identified. The ventricles are normal in size. There is no abnormal attenuation within the brain parenchyma. Slight nasal septal deviation toward the left side is again noted. The osseous structures and soft tissues are normal. The mastoid air cells and visualized portions of the paranasal sinuses are well aerated. IMPRESSION: Mildly limited exam by motion. No acute intracranial pathology. DICTATED BY: Seema Fernandez MD DATE/TIME DICTATED:09/26 TANKERMAN:ANAM DATE/TIME TRANSCRIBED:04/09/18723 CONFIDENTIAL, DO NOT COPY WITHOUT APPROPRIATE AUTHORIZATION. <Electronically signed in Other Vendor System> SIGNED BY: Seema Fernandez MD 04/09/18 8129 Comments: HEADACHE MUCH IMPROVED STILL NO CHEST PAIN OR SHORTNESS OF BREATH Departure Departure Disposition: HOME OR SELF CARE Condition: Stable Clinical Impression Primary Impression: Headache Secondary Impressions: Pedal edema Referrals: Patient Has No Primary Care Dr (PCP/Family) Additional Instructions: RETURN IF SYMPTOMS WORSEN OR FOR ANY CONCERNS Departure Forms: Customer Survey General Discharge Information
[2018-04-09 07:19] VITALS: BP 138/73
--- NOTE | 2018-04-09 07:32 | CT SCAN REPORT ---
EXAMINATION: CT HEAD WITHOUT CONTRAST CLINICAL INFORMATION: Headache and on Eliquis. Presumptive diagnosis of intracranial hemorrhage. COMPARISON: CT scan of the head dated 04/22/2012. TECHNIQUE: Contiguous axial imaging was performed from the skull base to vertex without intravenous administration of contrast. DLP: 631.72 mGy-cm FINDINGS: Evaluation mildly limited by motion artifact. There is no evidence of acute intracranial hemorrhage or territorial infarction. No abnormal mass effect or midline shift is seen. Reyes to white matter differentiation is well preserved. No extra-axial fluid collections are identified. The ventricles are normal in size. There is no abnormal attenuation within the brain parenchyma. Slight nasal septal deviation toward the left side is again noted. The osseous structures and soft tissues are normal. The mastoid air cells and visualized portions of the paranasal sinuses are well aerated. IMPRESSION: Mildly limited exam by motion. No acute intracranial pathology.
== END 2018-04-09 07:53 ==
LOC: ERH 04:12
DX: R51 Headache (principal); R60.0 Localized edema
CPT/HCPCS: 96374; 96375; J1200; J1885